=== PATIENT | female | born 1990 | race Hispanic/Latino ===

== ENCOUNTER → 2021-01-13 15:36 | Outpatient (CLI) | payer OTHER, MEDICAID, SELFPAY ==
[2021-01-13] MEDS: COVID-19 VACC #1, MRNA(MOD) 100 MCG/0.5 ML VIAL IM (15:42)
== END ==
PROVIDERS: Visit Provider Internal Medicine
DX: Z23 Encounter for immunization (principal)
CPT/HCPCS: 0011A; 91301

== ENCOUNTER → 2021-02-11 13:18 | Outpatient (CLI) | payer OTHER, MEDICAID, SELFPAY ==
[2021-02-11] MEDS: COVID-19 VACC #2, MRNA(MOD) 100 MCG/0.5 ML VIAL IM (13:27)
== END ==
PROVIDERS: Visit Provider Internal Medicine
DX: Z23 Encounter for immunization (principal)
CPT/HCPCS: 0012A; 91301